=== PATIENT | female | born 1960 | race Caucasian/White ===

== ENCOUNTER 2018-12-17 05:25 | Observation (INO) ==
[2018-12-17 05:55] LABS: Basophils % 0.3 % (0.0-0.8); Eosinophils % 0.4 % (0.00-10.9); Hematocrit 35.9 VOL% (35.7-47.0); Hemoglobin 11.7 GM/DL (12.0-16.0); Immature Granulocytes % 0.4 %; Immature Granulocytes Absolute 0.04 #; Lymphocytes # 2.5 10*3/uL (1.4-4.0); Lymphocytes % 23.2 % (21.3-54.2); Mean Corpuscular HGB Conc 32.6 GM/DL (32-36); Mean Corpuscular Volume 98.9 FL (87-102); Mean Platelet Volume 9.1 FL (9.6-12.0); Monocytes % 11.4 % (1.7-12.7); Neutrophils % 64.3 % (38.7-73.9); Platelet Count 297 T/CUMM (130-400); Red Blood Count 3.63 MC/CUMM (3.8-5.5); Red Cell Distribution Width 13.4 % (9.3-17.3); White Blood Count 10.6 T/CUMM (4-12)
[2018-12-17 06:02] LABS: INR 0.9; Partial Thromboplastin Time 23.6 SECS (0-40)
[2018-12-17 06:17] LABS: Albumin 3.6 G/DL (3.4-5.0); Bilirubin,Total 0.8 MG/DL (0.2-1.0); Calcium 8.6 MG/DL (8.5-10.1); Osmolality,Calculated 275.5 MOS/KG (273-304); Total Protein 6.7 G/DL (6.4-8.3)
[2018-12-17] MEDS ORDERED: ENOXAPARIN 60 MG/0.6 ML SYRINGE SUBCUT STA (06:39)
[2018-12-17] MEDS ORDERED: NITROGLYCERIN 2% OINT 1 INCH/GM PACK TOP STA (06:40)
[2018-12-17 07:26] LABS: Barbiturates Screen,Urine Negative (Negative); Benzodiazepines Screen,Urine Negative (Negative); Cannabinoid Screen,Urine Negative (Negative); Opiate Screen,Urine Positive (Negative); Phencyclidine Screen,Urine Negative (Negative)
[2018-12-17] MEDS ORDERED: METHOCARBAMOL 500 MG TABLET PO PRN (08:40)
[2018-12-17] MEDS ORDERED: ALUM/MAG/SIMETH/LIDO VISC 1:1 30 ML BOTTLE PO STA (08:40)
[2018-12-17] MEDS: SODIUM CHLORIDE 0.45% 1,000 ML IV SCH ×2 (10:04→19:54)
[2018-12-17] MEDS: MORPHINE 4 MG/1 ML VIAL IV PRN ×3 (10:13→19:55)
[2018-12-17] MEDS: ENOXAPARIN 60 MG/0.6 ML SYRINGE SUBCUT SCH (10:17)
[2018-12-17] MEDS: ATORVASTATIN 10 MG TABLET PO SCH (21:03)
[2018-12-17] MEDS: PREGABALIN 75 MG CAPSULE PO SCH (21:03)
[2018-12-17] MEDS: rOPINIRole 1 MG TABLET PO SCH (21:03)
[2018-12-17] MEDS: NICOTINE 21 MG/24 HR PATCH TRANSDERM PRN (21:03)
[2018-12-17] MEDS: OXYBUTYNIN XL 15 MG TABLET PO SCH (21:47)
[2018-12-18] MEDS: oxyCODONE IR 5 MG TABLET PO PRN ×5 (05:29→23:01)
[2018-12-18] MEDS: SODIUM CHLORIDE 0.45% 1,000 ML IV SCH (05:31)
[2018-12-18 05:53] LABS: Basophils % 0.4 % (0.0-0.8); Eosinophils % 0.5 % (0.00-10.9); Hematocrit 34.6 VOL% (35.7-47.0); Hemoglobin 11.3 GM/DL (12.0-16.0); Immature Granulocytes % 0.4 %; Immature Granulocytes Absolute 0.03 #; Lymphocytes # 2.1 10*3/uL (1.4-4.0); Lymphocytes % 26.5 % (21.3-54.2); Mean Corpuscular HGB Conc 32.7 GM/DL (32-36); Mean Platelet Volume 9.5 FL (9.6-12.0); Monocytes % 9.7 % (1.7-12.7); Neutrophils % 62.5 % (38.7-73.9); Platelet Count 293 T/CUMM (130-400); Red Blood Count 3.46 MC/CUMM (3.8-5.5); Red Cell Distribution Width 13.5 % (9.3-17.3); White Blood Count 8.1 T/CUMM (4-12)
[2018-12-18 06:09] LABS: Calcium 8.5 MG/DL (8.5-10.1); Osmolality,Calculated 278.3 MOS/KG (273-304); Risk Ratio 2.28; VLDL CHOLESTEROL 13.6 MG/DL
[2018-12-18] MEDS: POTASSIUM CHLORIDE 20 MEQ TABLET PO PRN (06:54)
[2018-12-18] MEDS: ENOXAPARIN 60 MG/0.6 ML SYRINGE SUBCUT SCH (09:24)
[2018-12-18] MEDS: buPROPion XL 150 MG TABLET PO SCH (09:26)
[2018-12-18] MEDS: PREGABALIN 75 MG CAPSULE PO SCH ×2 (09:26→22:53)
[2018-12-18] MEDS ORDERED: MAGNESIUM HYDROXIDE SUSP 30 ML UDCUP PO PRN (12:20)
[2018-12-18] MEDS: NICOTINE 21 MG/24 HR PATCH TRANSDERM PRN (18:30)
[2018-12-18] MEDS: OXYBUTYNIN XL 15 MG TABLET PO SCH (22:52)
[2018-12-18] MEDS: rOPINIRole 1 MG TABLET PO SCH (22:52)
[2018-12-18] MEDS: ATORVASTATIN 10 MG TABLET PO SCH (22:54)
[2018-12-19] MEDS: oxyCODONE IR 5 MG TABLET PO PRN ×2 (05:29→14:54)
[2018-12-19] MEDS ORDERED: SODIUM PHOSPHATE ENEMA 133 ML BOTTLE RECTAL ONE (06:00)
[2018-12-19 07:32] LABS: Basophils % 0.5 % (0.0-0.8); Eosinophils # 0.1 10*3/uL (0.0-0.87); Eosinophils % 0.8 % (0.00-10.9); Hematocrit 37.2 VOL% (35.7-47.0); Hemoglobin 12.1 GM/DL (12.0-16.0); Immature Granulocytes % 0.2 %; Immature Granulocytes Absolute 0.01 #; Lymphocytes # 2.5 10*3/uL (1.4-4.0); Lymphocytes % 41.1 % (21.3-54.2); Mean Corpuscular HGB Conc 32.5 GM/DL (32-36); Mean Corpuscular Volume 100.5 FL (87-102); Mean Platelet Volume 9.1 FL (9.6-12.0); Monocytes % 9.1 % (1.7-12.7); Neutrophils % 48.3 % (38.7-73.9); Platelet Count 312 T/CUMM (130-400); Red Cell Distribution Width 13.7 % (9.3-17.3)
[2018-12-19 07:41] LABS: Calcium 8.4 MG/DL (8.5-10.1)
[2018-12-19] MEDS ORDERED: PROPOFOL 200 MG/20 ML VIAL IV ONE (09:00)
[2018-12-19] MEDS ORDERED: LIDOCAINE 2% 5 ML VIAL ONE (09:00)
[2018-12-19] MEDS ORDERED: LACTATED RINGERS 1,000 ML IV SCH (14:21)
[2018-12-19 14:22] VITALS: BP 120/63
[2018-12-19] MEDS: buPROPion XL 150 MG TABLET PO SCH (14:55)
[2018-12-19] MEDS: POTASSIUM CHLORIDE 20 MEQ TABLET PO PRN (14:55)
[2018-12-19] MEDS: PREGABALIN 75 MG CAPSULE PO SCH (14:55)
== END 2018-12-19 17:31 | disposition home or self-care (01) ==
LOC: EDUNIT# → EDBD → N.ED 05:25 → N.EDINP 05:25 → N.TELES 09:06
PROVIDERS: ADMIT Internal Medicine; ATTEND Internal Medicine